=== PATIENT | female | born 1970 | race Caucasian/White ===

== ENCOUNTER 2018-08-11 23:43 | Emergency (ER) | payer MEDICAID ==
[2018-08-11 23:56] VITALS: BP 155/82; PULSE 72; TEMP 98.2; O2SAT 99
--- NOTE | 2018-08-12 00:40 | C.PDOC ---
History Of Present Illness 47 y/o female presents to the ED complaining of right arm pain for several weeks. Patient reports history of peripheral neuropathy to the extremities for the last several months. Patient reports that the pain starts in the neck and causing tingling that radiates down the right arm. She has been taking Motrin OTC with minimal relief. No associated fall or trauma. Patient otherwise denies any fevers, chills, chest pain, chest pain, SOB, incontinence, numbness, or weakness. Time Seen by Provider: 08/12/18 00:04 Chief Complaint (Nursing): Upper Extremity Problem/Injury History Per: Patient History/Exam Limitations: no limitations Onset/Duration Of Symptoms: Days Current Symptoms Are (Timing): Still Present Past Medical History Reviewed: Historical Data, Nursing Documentation, Vital Signs Vital Signs: Last Vital Signs Temp 98.2 F 08/11/18 23:49 Pulse 72 08/11/18 23:49 Resp 18 08/11/18 23:49 BP 155/82 H 08/11/18 23:49 Pulse Ox 99 08/11/18 23:49 Surgical History: (x 3) Family History: States: No Known Family Hx - Social History Hx Alcohol Use: No Hx Substance Use: No - Immunization History Hx Tetanus Toxoid Vaccination: No Hx Influenza Vaccination: No Hx Pneumococcal Vaccination: No Review Of Systems Constitutional: Negative for: Fever, Chills Cardiovascular: Negative for: Chest Pain Respiratory: Negative for: Shortness of Breath Musculoskeletal: Positive for: Arm Pain Neurological: Negative for: Weakness, Numbness Physical Exam - Physical Exam Appears: Non-toxic, No Acute Distress Skin: Normal Color, Warm, Dry, No Rash Head: Atraumatic, Normacephalic Eye(s): bilateral: Normal Inspection Ear(s): Bilateral: Normal Oral Mucosa: Moist Throat: No Erythema, No Exudate Neck: Normal ROM, No Midline Cervical Tenderness, Paracervical Tenderness (right paracervical), Supple Chest: Symmetrical Cardiovascular: Rhythm Regular, No Friction Rub, No Murmur Back: No Vertebral Tenderness, Paraspinal Tenderness (right paracervical and parathoracic tenderness) Extremity: Normal ROM (to RUE), No Tenderness, Capillary Refill (less than 2 sec), No Swelling Pulses: Left Radial: Normal, Right Radial: Normal Neurological/Psych: Oriented x3, Normal Motor, Normal Sensation Gait: Steady ED Course And Treatment O2 Sat by Pulse Oximetry: 99 (RA) Pulse Ox Interpretation: Normal Medical Decision Making Medical Decision Making: Plan: --10 mg Flexeril PO --40 mg Prednisone PO On re-exam, the patient reports improvement of symptoms. Lungs are CTA, heart is RRR, abdomen is soft, non-tender and the patient is tolerating PO well. Pt is ambulatory in the ED with steady gait. Disposition - Disposition Referrals: Shukri Chau MD [Non-Staff] - Disposition: HOME/ ROUTINE Disposition Time: 00:37 Condition: STABLE Additional Instructions: Follow up with the medical doctor within 1-2 days. Return if worsened. Prescriptions: Cyclobenzaprine [Flexeril] 5 mg PO TID #21 tab Naproxen [Naprosyn] 500 mg PO BID #20 tab predniSONE [Prednisone] 20 mg PO BID #10 tab Instructions: Radiculopathy (DC) Forms: [facility] (Spanish) Print Language: CUBAN - Clinical Impression Clinical Impression: Cervical radiculopathy - PA / [employer] / Resident Statement MD/DO has reviewed & agrees with the documentation as recorded. - Scribe Statement The provider has reviewed the documentation as recorded by the Scribanaid Spear All medical record entries made by the Pari were at my direction and personally dictated by me. I have reviewed the chart and agree that the record accurately reflects my personal performance of the history, physical exam, medical decision making, and the department course for this patient. I have also personally directed, reviewed, and agree with the discharge instructions and disposition.
[2018-08-12 00:42] VITALS: RESP 20
== END 2018-08-12 00:41 | disposition home or self-care (01) ==
LOC: C.ER 23:43
DX: M54.12 Radiculopathy, cervical region (principal)